=== PATIENT | male | born 1980 | race Caucasian/White ===

== ENCOUNTER → 2018-02-16 | Outpatient (CLI) | payer BC | LOC: LAB 16:30 | PROVIDERS: ATTEND Nurse Practitioner | DX: R19.4 Change in bowel habit (principal) | CPT/HCPCS: 83520; 87269 ==

== ENCOUNTER → 2018-05-16 | Outpatient (REF) | LOC: AUD 09:30 | PROVIDERS: ATTEND Family Medicine | DX: Z01.10 Encounter for examination of ears and hearing without abnormal findings (principal) | CPT/HCPCS: 92552 ==

== ENCOUNTER 2019-02-22 01:18 | Day surgery (SDC) | payer BC ==
[~2019-02-22] VITALS: Ht 185.4 cm; Wt 83.0 kg
[~2019-02-22 01:18] MED LIST: NAPR220C12 PO
[2019-02-22 10:08] VITALS: BP 123/77
[2019-02-22] MEDS ORDERED: NORMOSOL R SOLN(*) 1000 ML BAG 1,000 ML IV PRN (10:30)
[2019-02-22] MEDS ORDERED: LIDOCAINE/SOD BICARB 8.4% SYR ID ONE (10:30)
[2019-02-22] MEDS ORDERED: PROPOFOL EMUL(*) 10MG/ML 20 ML 40 ML ONE (10:34)
[2019-02-22] MEDS ORDERED: LIDOCAINE MPF 1% 5 ML VIAL ONE (10:34)
[2019-02-22 11:39] VITALS: BP 106/64
[2019-02-22 11:45] VITALS: BP 104/69
--- NOTE | 2019-02-22 11:50 | NUR ---
1139 SBAR REPORT WAS RECEIVED FROM DR. SAM AND MARIZOL GRIFFIN RN. PATIENT IS IN A L. LATERAL POSITION. HE ARRIVED ON 8 LITERS OXYMASK WHICH WAS TURNED TO 2 LITERS ON ARRIVAL. HE HAS HYPERACTIVE BOWEL SOUNDS. UNABLE TO ASSESS PAIN OR NAUSEA. IS PRESENT IN THE ROOM. 1145 PATIENT CONTINUES TO SLEEP AT THIS TIME 1150 PATIENT CONTINUES TO SLEEP
--- NOTE | 2019-02-22 11:50 | Short(Outpt) Discharge Summary ---
Discharge Summary Reason for Hosp/Final Diag: (1) Bloating Status: Chronic Hospital Course & Plan: Colonoscopy completed without problems, normal. (2) Flatulence Status: Chronic (3) Belching Status: Chronic (4) Diarrhea Status: Chronic (5) Hematochezia Status: Chronic Departure Discharge to: Home, Self Care Discharge Instructions Home Meds Reported Medications Naproxen Sodium (ALEVE) 220 Mg Capsule, 220 MG PO PRN, CAPSULE 02/17/19 Diet: Regular Activity: As Tolerated Special Instructions: Your colonoscopy was completed without problems and your prep was excellent (Good Job!!). I didn't find any polyps, inflammation, or any other abnormalities throughout your colon. Continue with the dairy-free diet and my office will call you in the next couple of days to schedule a follow up appiontment with you to discuss your symptoms and see what else needs to be done to improve them if they persist. I recommend that you keep a food diary including the date/time of meal and date/time of symptoms so we can see if there's any discernable relationship between your symptoms and the foods you're eating. SERJIO JENNINGS MD February 22, 2019 11:50
[2019-02-22 12:14] VITALS: BP_SYST 103; BP_SYST 104; BP_DIAS 72; BP_DIAS 78
--- NOTE | 2019-02-22 12:30 | NUR ---
1153 PATIENT WOKE AND WAS MOVED TO ROOM AIR 1154 PATIENT BEGAN DRINKING GATORADE 1215 FINISHED DC INSTRUCTIONS. THEY VERBALIZED UNDERSTANDING 1216 PATIENT DID ORTHOSTATICS. HE DENIES ANY DIZZINESS OR LIGHTHEADEDNESS AND WAS STABLE ON HIS FEET 1225 IV WAS DC'D WITH CATH INTACT 1230 PATIENT WAS DC'D AND WAS AMBULATORY ON DISCHARGE. HE DENIES ANY PAIN OR NAUSEA. HYPERACTIVE BOWEL SOUNDS . SEE DISCHARGE ASSESSMENT.
== END 2019-02-22 12:30 | disposition home or self-care (01) ==
LOC: OR 01:18
PROVIDERS: ATTEND Surgery
DX: R19.7 Diarrhea, unspecified (principal); K59.00 Constipation, unspecified; R10.84 Generalized abdominal pain
CPT/HCPCS: 00811; 45378; 83516; 85651; 86140; J2001; J2704